=== PATIENT | female | born 2000 | race Caucasian/White ===

== ENCOUNTER 2024-09-21 07:42 | Inpatient (IN) ==
[2024-09-21] MEDS ORDERED: OXYTOCIN 30 UNITS/NSS 30 UNITS/500 ML BAG IV PRN (07:53)
[2024-09-21] MEDS ORDERED: LIDOCAINE 1% LOCAL 20 ML VIAL INFIL PRN (07:53)
[2024-09-21] MEDS ORDERED: CALCIUM CARBONATE 500 MG CHEWABLE TAB PO PRN (07:53)
--- NOTE | 2024-09-21 08:09 | History & Physical Report ---
Date of Service September 21, 2024 Assessment & Plan (1) Encounter for induction of labor: (2) Carrier of group B Streptococcus: Plan Alhaji is a 23yo admitted for scheduled induction of labor Cai bulb in place Pitocin 2 by 2 AROM when indicated Monitor FHR, currently category 1 Penicillin ordered for GBS+, has had amoxicillin previously without issue Admission and Anticipated Discharge Date Admission Date: September 21, 2024 History of Present Illness Chief Complaint: IOL Primary Care Provider: NO PCP Alhaji is a 23yo admitted for scheduled induction of labor. Cai bulb placed yesterday evening 09/20/24, still in place this AM 09/21/24. Feeling well today, denies any significant complications during . Feeling baby moving regularly. [place] some contractions on 09/16 and then a little yesterday, nothing much today. Denies significant vaginal bleeding or discharge during . Denies any significant abdominal pain or trauma during . Endorses her appetite has been very good in recent days. Last BM was yesterday 09/20/24 afternoon. Endorses she had hives from Keflex in childhood, but has since had amoxicillin without issue. Denies headache, chest pain, abdominal pain, SOB, nausea/vomiting, diarrhea, or LE pain/swelling. GBS+, Rh+, T. pallidum pending. Allergies Allergy/AdvReac Type Severity Reaction Status Date / Time sulfamethoxazole Allergy Severe Anaphylaxis Verified 09/20/24 19:40 [From Bactrim] trimethoprim [From Bactrim] Allergy Severe Anaphylaxis Verified 09/20/24 19:40 cephalexin [From Keflex] Allergy Intermediate Hives Verified 09/21/24 08:17 Home Medications Medication Instructions Recorded Confirmed Type PNV no.[id number] 1 tab PO DAILY 01/23/24 09/21/24 History [ Gummies] famotidine 20 mg tablet (Pepcid) 20 mg PO DAILY 05/03/24 09/21/24 History Past Med/Surg History Problem List (Updated 09/21/24 @ 13:33 by Fei Phillip DO) Encounter for pre-operative examination Encounter for induction of labor Carrier of group B Streptococcus Encounter for anatomic survey Size of fetus inconsistent with dates in first trimester Supervision of normal first Medical History Varicella vaccination Surgical History No history of previous surgery Family History Grandmother (Maternal) Lung cancer Denies family history of Ovarian cancer Breast cancer Colorectal cancer Social History (Updated 01/23/24 @ 14:13 by Natasha Kumar) Smoking Status: Former smoker Tobacco Type: E-cigarettes / Vaping Do You Dip or Chew Tobacco: No; Hx Alcohol Use: No Hx Substance Use: No Preferred Language: Mongolian Communication Ability: Effective 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 Beliefs That Will Affect Care: None marital status: Single marital status details: dhiraj Byrd (23) [phone] Current Living Situation: Significant Other Current Living Situation Comment: lives with fob, dog, cat-fob changing litter current occupational status: employed current occupation: [employer] Other Information That Helps Us Care for You: No Feels Safe at Home: No Is there a partner from a previous relationship who is making you feel unsafe now?: No Any Concerns about Your Family Situation: No Would You Like to Speak to Someone About Your Situation: No Safety Concerns: Feels Safe At This Time Physical Exam Physical Exam: General: A&Ox4, in no acute distress CV: RRR, +s1/s2, no m/r/g Resp: clear to auscultation b/l, no wheeze/rales/rhonchi GI/Abd: +BS, gravid, nontender to palpation, FHR pads in place Ext: b/l LE slightly erythematous in appearance and feeling tense to palpation but nontender to palpation, Emma's negative b/l Cervical: cai bulb in place, est weight 7-8lbs Neuro: no facial droop, speech intact, sensation grossly intact Psych: euthymic, appropriate speech FHR: baseline 140, low moderate variability, accels present, decels absent Results & Data Results & Data Vital Signs (Past 12 Hours) Vital Signs Temp Pulse Resp BP 09/21/24 07:56 94 H 136/84 09/21/24 07:52 36.9 C 20 Resident Activity Tracking Resident Involvement: Resident Care Provided Care Provided: OB Delivery
[2024-09-21] MEDS: LACTATED RINGER'S 1,000 ML IV PRN (08:53)
[2024-09-21 08:57] LABS: Hematocrit (blood only) 36.2 % (37.0-47.0); Hemoglobin 12.1 g/dl (12.0-16.0); Mean Corpuscular Hemoglobin 29.9 pg (25.0-34.0); Mean Corpuscular Hgb Conc 33.4 g/dL (32.0-36.0); Mean Corpuscular Volume 89.4 fL (80.0-100.0); Mean Platelet Volume 11.3 fL (9.4-12.4); Platelet Count 219 K/uL (130-400); RDW Coefficient of Variation 14.1 % (11.5-14.5); RDW Standard Deviation 45.9 fL (36.4-46.3); Red Blood Count 4.05 M/uL (4.20-5.40); White Blood Count 7.47 K/ul (4.8-10.8)
[2024-09-21] MEDS: PENICILLIN GK 6 MU in DEXTROSE 5% 250 ML IV STA (09:07)
[2024-09-21] MEDS: OXYTOCIN 30 UNITS/NSS 30 UNITS/500 ML BAG IV PRN ×2 (09:08→21:39)
[2024-09-21] MEDS: PENICILLIN GK 3 MU in DEXTROSE 5% 100 ML IV PRN (12:40)
[2024-09-21] MEDS ORDERED: NALBUPHINE HCL INJ 10 MG/ML AMP IV PRN (13:33)
[2024-09-21] MEDS ORDERED: BUPIVACAINE 0.25% PF 30 ML VIAL EPI PRN (13:33)
[2024-09-21] MEDS ORDERED: NALOXONE HCL 1 MG in SODIUM CHLORIDE 0.9% 1,000 ML IV PRN (13:33)
[2024-09-21] MEDS ORDERED: ROPIVACAINE 0.5% PF 5 MG/ML 20 ML VIAL EPI PRN (13:33)
[2024-09-21] MEDS ORDERED: fentANYL 2 MCG/ML BUPIVacaine 0.125%-NSS 100ML BAG EPI PRN (13:33)
[2024-09-21] MEDS ORDERED: fentaNYL citrate PF 100 MCG/2 ML VIAL EPI PRN (13:33)
[2024-09-21] MEDS ORDERED: LIDOCAINE 2% MPF LOCAL 5 ML VIAL EPI PRN (13:33)
[2024-09-21] MEDS ORDERED: ePHEDrine sulfate 50 MG/ML AMP IV PRN (13:33)
[2024-09-21] MEDS ORDERED: diphenhydrAMINE 50 MG/ML VIAL IV PRN (13:33)
[2024-09-21] MEDS ORDERED: SODIUM CHLORIDE 0.9% PF INJ 10 ML VIAL EPI PRN (13:33)
[2024-09-21] MEDS ORDERED: NALOXONE HCL 0.4 MG/1 ML VIAL/CARP IV PRN (13:33)
--- NOTE | 2024-09-21 13:33 | Anesthesiology Consultation ---
Date of Service September 21, 2024 Assessment & Plan (1) Encounter for pre-operative examination: Chart Review Chart Review: Patient NOT seen in Pre Admission Testing and Acceptable Risk for Labor Epidural Consults Requested none History Height/Weight Height: 5 ft 4 in Weight: 115.666 kg Allergies Allergy/AdvReac Type Severity Reaction Status Date / Time sulfamethoxazole Allergy Severe Anaphylaxis Verified 09/20/24 19:40 [From Bactrim] trimethoprim [From Bactrim] Allergy Severe Anaphylaxis Verified 09/20/24 19:40 cephalexin [From Keflex] Allergy Intermediate Hives Verified 09/21/24 08:17 Medications Home Medications Medication Instructions Recorded Confirmed Last Taken PNV no.[id number] 1 tab PO DAILY 01/23/24 09/21/24 09/20/24 [ Gummies] famotidine 20 mg tablet (Pepcid) 20 mg PO DAILY 05/03/24 09/21/24 09/18/24 20:00 Active Medications Generic Name Dose Route Start Last Admin Trade Name Rakel PRN Reason Stop Dose Admin Lactated Ringer's 1,000 mls @ 125 mls/hr 09/21/24 07:53 09/21/24 08:53 Lr IV 09/22/24 07:52 125 mls/hr .Q8H PRN Administration L&D Protocol Protocol Penicillin G Potassium 3 mu/ 106 mls @ 100 mls/hr 09/21/24 12:00 09/21/24 12:40 Dextrose IV 10/01/24 11:59 100 mls/hr Q4H PRN Administration GBS(+) Until Delivery Oxytocin 30 units in 500 mls @ 16 mls/hr 09/21/24 08:45 09/21/24 13:00 Pitocin 30 Units/Nss IV 09/23/24 08:44 0.96 units/hr .Q24H PRN 16 mls/hr Labor Induction/Augmentation Titration Protocol 0.96 UNITS/HR Past Medical History Medical History Varicella vaccination Past Family History Family History Grandmother (Maternal) Lung cancer Denies family history of Ovarian cancer Breast cancer Colorectal cancer Past Surgical History Surgical History No history of previous surgery Social History Smoking Status: Former smoker Do You Dip or Chew Tobacco: No Hx Alcohol Use: No Hx Substance Use: No substance use type: does not use Physical Exam Vital Signs Last Vital Signs Temp 98.4 F 09/21/24 07:52 Pulse 84 09/21/24 12:43 Resp 20 09/21/24 07:52 BP 128/69 09/21/24 12:43 Testing Laboratory Results 09/21/24 08:18 Blood Type A Positive 09/21/24 08:18 Antibody Screen NEGATIVE 09/21/24 08:18
[2024-09-21] MEDS: fentANYL 2 MCG/ML BUPIVacaine 0.125%-NSS 100ML BAG ONE (13:44)
[2024-09-21] MEDS: LIDOCAINE 2%/EPINEPHRINE 1:200,000 20 ML PF ONE (13:53)
[2024-09-21] MEDS: BUPIVACAINE 0.25% PF 30 ML VIAL ONE (13:53)
[2024-09-21] MEDS: fentaNYL citrate PF 100 MCG/2 ML VIAL ONE (13:54)
[2024-09-21] MEDS: fentaNYL citrate PF 100 MCG/2 ML VIAL EPI STA (14:20)
[2024-09-21] MEDS: SODIUM CHLORIDE 0.9% PF INJ 10 ML VIAL ONE (14:20)
[2024-09-21] MEDS: BUPIVACAINE 0.25% PF 30 ML VIAL EPI STA (14:20)
[2024-09-21] MEDS: LIDOCAINE 2%/EPINEPHRINE 1:200,000 20 ML PF EPI STA (14:20)
[2024-09-21] MEDS: SODIUM CHLORIDE 0.9% PF INJ 10 ML VIAL EPI STA (14:20)
[2024-09-21] MEDS: ACETAMINOPHEN 325 MG TAB PO PRN (16:53)
--- NOTE | 2024-09-21 16:55 | Labor Progress Brief Note ---
Date of Service September 21, 2024 Patient has been induced today had cervical [place] last night is at Pitocin 20 milliunits IUPC placed she is 4 to 5 cm -1 station will monitor the contraction pattern with IUPC so far it seems adequate but will adjust as appropriate Assessment & Plan Admission and Anticipated Discharge Date Admission Date: September 21, 2024 Results & Data Vital Signs (Past 12 Hours) Vital Signs Temp Pulse Resp BP Pulse Ox 09/21/24 16:50 71 100 09/21/24 16:46 73 134/77 09/21/24 16:45 77 100 09/21/24 16:40 70 100 09/21/24 16:35 69 100 09/21/24 16:30 71 121/68 100 09/21/24 16:25 68 100 09/21/24 16:20 73 100 09/21/24 16:16 75 123/69 09/21/24 16:15 70 100 09/21/24 16:10 86 99 09/21/24 16:05 78 100 09/21/24 16:02 78 113/63 09/21/24 16:00 16 09/21/24 16:00 76 16 99 09/21/24 15:55 71 98 09/21/24 15:50 65 98 09/21/24 15:45 82 109/55 L 100 09/21/24 15:40 81 99 09/21/24 15:35 68 98 09/21/24 15:31 65 103/57 L 09/21/24 15:30 72 20 99 09/21/24 15:25 69 99 09/21/24 15:20 78 100 09/21/24 15:16 93 H 127/72 09/21/24 15:15 88 100 09/21/24 15:10 67 99 09/21/24 15:05 70 100 09/21/24 15:01 68 139/78 09/21/24 15:00 18 09/21/24 15:00 69 18 100 09/21/24 14:55 77 99 09/21/24 14:50 98.1 F 71 18 99 09/21/24 14:46 84 153/75 H 09/21/24 14:45 82 100 09/21/24 14:40 82 100 09/21/24 14:35 64 98 09/21/24 14:30 18 09/21/24 14:30 18 09/21/24 14:30 99 09/21/24 14:30 85 09/21/24 14:30 68 138/72 09/21/24 14:25 70 132/73 100 09/21/24 14:21 67 135/75 09/21/24 14:20 74 100 09/21/24 14:15 82 134/77 100 09/21/24 14:10 100 09/21/24 14:10 86 09/21/24 14:10 70 130/71 09/21/24 14:05 18 09/21/24 14:05 18 09/21/24 14:05 20 09/21/24 14:05 98.1 F 20 09/21/24 14:05 100 09/21/24 14:05 73 09/21/24 14:05 74 133/74 09/21/24 14:02 78 132/74 09/21/24 14:00 79 136/75 100 09/21/24 13:59 78 135/71 09/21/24 13:57 75 132/72 09/21/24 13:55 18 09/21/24 13:55 18 09/21/24 13:55 100 09/21/24 13:55 81 09/21/24 13:55 81 153/82 H 09/21/24 13:53 79 132/79 09/21/24 13:51 72 146/78 H 09/21/24 13:50 73 100 09/21/24 13:45 79 100 09/21/24 13:43 81 131/76 09/21/24 13:40 82 100 09/21/24 12:43 84 128/69 09/21/24 12:03 82 119/72 09/21/24 12:02 98.4 F 09/21/24 11:02 72 138/79 09/21/24 09:54 81 121/75 09/21/24 08:52 83 117/81 09/21/24 07:56 94 H 136/84 09/21/24 07:52 98.4 F 20 Coding Level of Care Code None
[2024-09-21] MEDS: ePHEDrine sulfate 50 MG/ML AMP ONE (18:57)
[2024-09-21] MEDS: ONDANSETRON INJ 2 MG/ML 2 ML VIAL IV PRN (20:18)
--- NOTE | 2024-09-21 21:25 | Delivery Summary ---
Vaginal Delivery Summary Date of Service September 21, 2024 Vaginal Delivery Summary VAVD Vacuum-assisted vaginal delivery Clinical note the patient was feeling significant discomfort and was exhausted she had been pushing a short period of time but the station was +2 I did offer vacuum I did offer redosing with an epidural patient with this most of her discomfort was pressure which tends to not improve is much with redosing so she wishes to proceed with vacuum of bladder was drained for 220 cc prior to this the mighty VAC was applied 1 pop-off but only over the course of 1 contraction was required to deliver the head delivering baby in occiput anterior position vacuum was then detached gentle traction on the baby resulted in easy delivery of the baby no excessive force was used live vigorous female infant cord clamped and cut cord gases obtained cord blood obtained placenta removed with traction IV Pitocin started second-degree tear repaired with 3-0 Vicryl there was some increased uterine bleeding so 800 mcg of Cytotec was placed rectally sponge and instrument counts were correct QBL 574 MNPG Vaginal Delivery Charge Delivery Type Details: [facility]
[2024-09-21 21:29] LABS: Base Excess Cord Venous Blood -0.5 mEq/L (-7.7-1.9); Cord Venous Blood HCO3 23 mmol/L (18.4-26.8); Cord Venous Blood PCO2 34 mmHg (30.4-57.2); Cord Venous Blood PO2 27 mmHg (14.1-43.3); Cord Venous Blood pH 7.44 (7.20-7.44); O2 Saturation Cord Venous Bld 60.6 % (<68)
[2024-09-21 21:32] LABS: CO2 Cord Arterial Blood 43 mmHg (39.1-73.5); HCO3 Cord Arterial Blood 24 mmol/L (19.7-28.5); Oxygen Sat Cord Arterial Blood < 60.0 % (<60); PO2 Cord Arterial Blood 24 mmHg (4.1-31.7); pH Cord Arterial Blood 7.35 (7.1-7.38)
[2024-09-21] MEDS ORDERED: bisacodyL 10 MG SUPP PR PRN (21:34)
[2024-09-21] MEDS ORDERED: oxyCODONE/ACETAMINOPHEN 5mg/325mg TAB PO PRN (21:34)
[2024-09-21] MEDS ORDERED: HYDROCORTISONE ACETATE 25 MG SUPP PR PRN (21:34)
[2024-09-21] MEDS: BENZOCAINE 20% SPRY 85 APPLN/85 GM CAN EXT PRN (21:48)
[2024-09-21] MEDS: miSOPROStoL 200 MCG TAB PR ONE (21:48)
[2024-09-21] MEDS: DIPHTHER/TETAN/PERTUS Vaccine (Tdap, Adol/Adult) 0.5mL IM ONE (21:49)
[2024-09-21] MEDS: IBUPROFEN 600 MG TAB PO PRN (21:49)
[2024-09-21] MEDS ORDERED: SODIUM CHLORIDE 0.9% 100 ML IV PRN (23:54)
[2024-09-21] MEDS ORDERED: SODIUM CHLORIDE 0.9% 50 ML IV PRN (23:54)
[2024-09-22 06:39] LABS: Hematocrit (blood only) 32.2 % (37.0-47.0); Mean Corpuscular Hemoglobin 30.2 pg (25.0-34.0); Mean Corpuscular Hgb Conc 34.2 g/dL (32.0-36.0); Mean Corpuscular Volume 88.5 fL (80.0-100.0); Mean Platelet Volume 11.1 fL (9.4-12.4); Platelet Count 199 K/uL (130-400); RDW Coefficient of Variation 13.9 % (11.5-14.5); RDW Standard Deviation 44.9 fL (36.4-46.3); Red Blood Count 3.64 M/uL (4.20-5.40); White Blood Count 10.53 K/ul (4.8-10.8)
--- NOTE | 2024-09-22 07:07 | Obstetrical Progress Note ---
Date of Service September 22, 2024 Assessment & Plan (1) Encounter for pre-operative examination: Patient doing well. Minimal bleeding, no extremity pain she has no calf tenderness she is tolerating a regular diet she is voiding well she has no depression Instructions are reviewed Subjective Ambulation: ambulating normally Voiding: no voiding problems Passing Gas:: Yes Diet Tolerance:: regular diet Lochia:: Small Feeding Type:: bottle feeding Physical Exam Constitutional WD/WN, vitals as above well developed and well nourished Respiratory normal respiratory effort, lungs clear to auscultation normal respiratory effort Cardiovascular RRR, no murmur, no edema Gastrointestinal (Abdomen) normal bowel sounds, soft, nontender, no hepatosplenomegaly Results & Data Vital Signs (Past 12 Hours) Vital Signs Temp Pulse Pulse Resp BP BP Pulse Ox 09/22/24 03:30 98.1 F 65 18 124/79 99 09/21/24 23:45 97.9 F 87 18 138/79 98 09/21/24 23:26 84 128/74 09/21/24 23:25 98.2 F 18 09/21/24 23:11 96 H 124/70 09/21/24 22:56 88 126/70 09/21/24 22:55 98.2 F 18 09/21/24 22:41 85 130/70 09/21/24 22:26 88 128/76 09/21/24 22:25 98.2 F 18 09/21/24 22:11 91 H 129/72 09/21/24 22:10 98.2 F 18 09/21/24 21:56 79 140/78 09/21/24 21:55 98.2 F 18 09/21/24 21:41 80 130/72 09/21/24 21:40 98.2 F 18 09/21/24 21:30 82 135/62 09/21/24 21:27 101 H 09/21/24 21:27 89 173/75 H 93 09/21/24 21:26 98 H 169/79 H 09/21/24 21:25 98.2 F 18 09/21/24 21:25 89 98 09/21/24 21:20 89 100 09/21/24 21:16 88 122/63 09/21/24 21:15 100 H 100 09/21/24 21:10 90 100 09/21/24 21:05 111 H 100 09/21/24 21:02 93 09/21/24 21:02 95 H 09/21/24 21:02 74 133/78 09/21/24 21:00 86 100 09/21/24 20:55 79 100 09/21/24 20:50 110 H 100 09/21/24 20:45 79 125/73 100 09/21/24 20:43 97 H 91 09/21/24 20:40 87 100 09/21/24 20:35 85 97 09/21/24 20:30 76 127/71 100 09/21/24 20:25 93 H 100 09/21/24 20:20 93 H 100 09/21/24 20:17 76 124/61 09/21/24 20:15 85 94 09/21/24 20:10 70 99 09/21/24 20:05 73 100 09/21/24 20:00 74 124/70 100 09/21/24 19:55 74 100 09/21/24 19:50 70 100 09/21/24 19:47 71 127/73 09/21/24 19:45 86 100 09/21/24 19:40 91 H 99 09/21/24 19:35 75 99 09/21/24 19:30 79 138/78 100 09/21/24 19:25 97 H 100 09/21/24 19:20 73 100 09/21/24 19:16 74 136/70 09/21/24 19:15 69 100 09/21/24 19:10 97.7 F 18 09/21/24 19:10 97.7 F 71 18 100 O2 Del Method 09/22/24 03:30 Room Air 09/21/24 23:45 Room Air 09/21/24 23:26 09/21/24 23:25 09/21/24 23:11 09/21/24 22:56 09/21/24 22:55 09/21/24 22:41 09/21/24 22:26 09/21/24 22:25 09/21/24 22:11 09/21/24 22:10 09/21/24 21:56 09/21/24 21:55 09/21/24 21:41 09/21/24 21:40 09/21/24 21:30 09/21/24 21:27 09/21/24 21:27 09/21/24 21:26 09/21/24 21:25 09/21/24 21:25 09/21/24 21:20 09/21/24 21:16 09/21/24 21:15 09/21/24 21:10 09/21/24 21:05 09/21/24 21:02 09/21/24 21:02 09/21/24 21:02 09/21/24 21:00 09/21/24 20:55 09/21/24 20:50 09/21/24 20:45 09/21/24 20:43 09/21/24 20:40 09/21/24 20:35 09/21/24 20:30 09/21/24 20:25 09/21/24 20:20 09/21/24 20:17 09/21/24 20:15 09/21/24 20:10 09/21/24 20:05 09/21/24 20:00 09/21/24 19:55 09/21/24 19:50 09/21/24 19:47 09/21/24 19:45 09/21/24 19:40 09/21/24 19:35 09/21/24 19:30 09/21/24 19:25 09/21/24 19:20 09/21/24 19:16 09/21/24 19:15 09/21/24 19:10 09/21/24 19:10
[2024-09-22] MEDS: DOCUSATE SODIUM 100 MG CAP PO SCH (07:32)
[2024-09-22] MEDS: PRENATAL VITAMIN 1 TAB PO SCH (07:32)
[2024-09-22] MEDS: ACETAMINOPHEN 325 MG TAB PO PRN (08:53)
--- NOTE | 2024-09-22 09:32 | Anesthesia Procedure Note ---
Date of Service September 22, 2024 Anesthesia Post Epidural Note Vital Signs Vital Signs: Temp Pulse Resp BP Pulse Ox O2 Del Method 36.5 C 72 16 135/75 96 Room Air 09/22/24 07:25 09/22/24 07:25 09/22/24 07:25 09/22/24 07:25 09/22/24 07:25 09/22/24 07:25 Pain Intensity Vaginal: Pain Intensity: 4 Notes Mental Status: alert / awake / arousable Nausea / Vomiting: adequately controlled Pain: adequately controlled Airway Patency, RR, SpO2: stable & adequate BP & HR: stable & adequate Hydration State: stable & adequate Neuraxial Anesthesia: was administered and sensory block is resolving Anesthetic Complications: no major complications apparent and Pt Satisfied with anesthetic care Epidural: Removed without complications and With tip intact
[2024-09-22] MEDS: bisacodyL 5 MG TABEC PO SCH (20:45)
[2024-09-22 21:52] VITALS: RESP 18
[2024-09-22] MEDS: CALCIUM CARBONATE 500 MG CHEWABLE TAB PO PRN (23:48)
[2024-09-23 06:11] LABS: Hematocrit (blood only) 31.3 % (37.0-47.0); Hemoglobin 10.4 g/dl (12.0-16.0)
--- NOTE | 2024-09-23 06:54 | Obstetrical Progress Note ---
Date of Service September 23, 2024 Assessment & Plan (1) state: Plan Alhaji in is a 23yo day 2 s/p VSVD with 575cc qbl controlled with cytotec. Feels well today, VSS Continue care Encourage ambulation and Pain control with ibuprofen as needed Hgb: 10.4 Home today Follow up with Dr. Solorzano in 6wks Admission and Anticipated Discharge Date Admission Date: September 21, 2024 Supervising Physician Co-Signing Physician Notes Resident Physician Supervision Note: I was present with Dr. Valero during the history and exam. I discussed the case with the resident and agree with the findings and plan as documented in the note. Any exceptions or clarifications are listed here: doing well, ready to go home. , feels milk coming in. abd soft ff 2 down nt, nt calves. ppd#2 s/p instructions reviewed, f/u 6 wk pp. Documented By: Diya Dubon MD, FACOG Subjective Alhaji in is a 23yo day 2 s/p VSVD with 575cc qbl controlled with cytotec. Feeling: good, little crampy Ambulation: yes Void: peeing and gas Lochia: small Diet: tolerating Feeding: bottle, no concerns Sx: denies Physical Exam Physical Exam: Constitutional: WD/WN, vitals as above GI/abd: +BS, fundus 1fw- umbilicus, mild tenderness to palpation LE: 1+ pitting edema, nontender to palpation Psychiatric: A&Ox3, euthymic Results & Data Vital Signs (Past 12 Hours) Vital Signs Temp Pulse Resp BP Pulse Ox O2 Del Method 09/22/24 20:50 36.5 C 71 18 138/88 96 Room Air Resident Activity Tracking Resident Involvement: Resident Care Provided Care Provided: OB Delivery
[2024-09-23 09:00] VITALS: BP 135/82; PULSE 56; TEMP 97.5; O2SAT 99
== END 2024-09-23 11:30 | disposition home or self-care (01) | DRG 807 ==
LOC: 4S1 07:42 → 4E2 09-22 00:01